=== PATIENT | male | born 1990 | race American Indian/Alaskan Native ===

== ENCOUNTER 2022-01-04 11:56 | Emergency (ER) | payer SELFPAY ==
[2022-01-04] MEDS ORDERED: ALBUTEROL 2.5 MG/3 ML NEBU IH ONE (12:19)
[2022-01-04] MEDS ORDERED: FUROSEMIDE 40 MG/4 ML INJ IV ONE (12:19)
[2022-01-04] MEDS ORDERED: IPRATROPIUM 0.02% NEBU 2.5 ML IH ONE (12:19)
--- NOTE | 2022-01-04 12:50 | XRay Report ---
CHEST 1 VIEW 01/04/2022 11:41 AM INDICATION / CLINICAL INFORMATION: Dyspnea. COMPARISON: None available. FINDINGS: SUPPORT DEVICES: None. HEART / MEDIASTINUM: Borderline to mild cardiomegaly is suspected LUNGS / PLEURA: There is poor inspiration. Bibasilar airspace opacities and small left pleural effusi on are suspected. No pneumothorax. ADDITIONAL FINDINGS: No significant additional findings. IMPRESSION: 1. Borderline heart size. 2. Bibasilar airspace opacities and small left pleural effusion. Correlate for pneumonia or mild CHF. Signer Name: Armando Sparks Jr, MD Signed: 01/04/2022 12:45 PM Workstation Name: [id number]
[2022-01-04 13:01] LABS: ABG Base Excess -2.2 mmol/L (-2.0-3.0); ABG HCO3 21.6 mmol/L (20.0-26.0); ABG Methemoglobin 0.6 % (0.0-1.5); ABG Oxygen Saturation 99.4 % (95.0-99.0); ABG PCO2 34.8 mm Hg; ABG PH 7.411 pH Units (7.350-7.450)
[2022-01-04 13:08] LABS: ABG PO2 261.4 mm Hg (80.0-90.0)
[2022-01-04 13:44] LABS: Basophils # (Auto) 0.1 K/mm3 (0.0-0.1); Basophils % (Auto) 0.7 % (0.0-1.8); Eosinophils % (Auto) 0.1 % (0.0-4.3); Hematocrit 48.9 % (35.5-45.6); Hemoglobin 15.9 gm/dl (11.8-15.2); Lymphocytes # (Auto) 2.5 K/mm3 (1.2-5.4); Lymphocytes % (Auto) 20.8 % (13.4-35.0); Mean Corpuscular HGB Conc 33 % (32-34); Mean Corpuscular Volume 96 fl (84-94); Monocytes % (Auto) 8.4 % (0.0-7.3); Platelet Count 317 K/mm3 (140-440); Red Cell Distribution Width 14.2 % (13.2-15.2)
[2022-01-04 13:50] LABS: Creatine Kinase MB 1.7 ng/mL (0.0-4.0)
[2022-01-04 13:52] LABS: Alanine Aminotransferase 9 units/L (7-56); Albumin 1.8 g/dL (3.9-5); BUN/Creatinine Ratio 8; Blood Urea Nitrogen 7 mg/dL (9-20); Calcium 8.1 mg/dL (8.4-10.2); Hemolysis Index 61
[2022-01-04 13:57] LABS: INR 0.9 (0.87-1.13)
[2022-01-04] MEDS ORDERED: NITROGLYCERIN DRIP 50 MG/250 ML BOTTLE IV SCH (14:00)
[2022-01-04 14:06] LABS: Hyaline Casts,Urine 9 /LPF; Mucus,Urine FEW /HPF
[2022-01-04 14:18] LABS: Amphetamine Screen,Urine PRESUMPTIVE NEGATIVE; Benzodiazepines Screen,Urine PRESUMPTIVE NEGATIVE; Cannabinoid Screen,Urine PRESUMPTIVE POSITIVE; Cocaine Screen,Urine PRESUMPTIVE POSITIVE; Methadone Screen,Urine PRESUMPTIVE NEGATIVE; Opiate Screen,Urine PRESUMPTIVE NEGATIVE
[2022-01-04 14:29] LABS: Color,Urine Yellow (Yellow)
--- NOTE | 2022-01-04 16:22 | Cat Scan Report ---
. CTA CHEST WITH CONTRAST INDICATION / CLINICAL INFORMATION: SOB 100ml of [id number]. TECHNIQUE: Axial CT images were obtained through the chest after injection of 100 cc Omni 350 IV cont rast. 3 plane MIP and/or 3D reconstructions were produced. All CT scans at this location are performe d using CT dose reduction for ALARA by means of automated exposure control. COMPARISON: None available. FINDINGS: PULMONARY EMBOLUS: None. THORACIC AORTA: No significant abnormality. HEART: No significant abnormality. CORONARY ARTERY CALCIFICATION: Absent -- None. MEDIASTINUM / JEF: No significant abnormality. PLEURA: Small bilateral effusions. No pneumothorax. LUNGS: Dense airspace consolidation left lower lobe. Compressive atelectasis both lower lobes. Modera te pulmonary emphysema ADDITIONAL FINDINGS: None. UPPER ABDOMEN: Small amount of upper abdominal fluid/ascites SKELETAL STRUCTURES: No significant osseous abnormality. IMPRESSION: 1. No CT evidence for pulmonary embolism. 2. Left lower lobe pneumonia. 3. Bilateral pleural effusions with small amount of upper abdominal ascites Signer Name: Nestor Lima MD Signed: 01/04/2022 4:18 PM Workstation Name: [id number]
[2022-01-04] MEDS ORDERED: cefTRIAXone/NS 1 GM/50 ML 1 GM/50 ML BAG IV ONE (16:25)
--- NOTE | 2022-01-04 20:20 | Emergency Department Report ---
ED General Adult HPI - General Chief complaint: Dyspnea/Respdistress Stated complaint: URBANO PUI?: No Time Seen by Provider: 01/04/22 12:17 Source: EMS Mode of arrival: Stretcher Limitations: Physical Limitation - History of Present Illness Initial comments: URBANO SINCE 01/03/2022, WAS 88% ON RA, CLUBBING TO FINGERS, NO MED HX pt dnies anyd rug history hasn;t seen a doctor for a long time -: Gradual, days(s) Location: chest Radiation: non-radiation Severity scale (0 -10): 0 Consistency: constant Improves with: none Worsens with: none Associated Symptoms: denies: denies other symptoms, confusion, chest pain - Related Data Previous Rx's Medication Instructions Recorded Last Taken Type Albuterol Mdi (or & Nicu Only) 2 puff IH QID PRN #8.5 gram 01/04/22 Unknown Rx [ProAir HFA Inhaler] Furosemide [Lasix] 20 mg PO QDAY #30 tablet 01/04/22 Unknown Rx Lisinopril/Hydrochlorothiazide 1 each PO DAILY #30 01/04/22 Unknown Rx [Zestoretic 10-12.5 mg Tablet] levoFLOXacin [Levaquin TAB] 500 mg PO QDAY #10 tablet 01/04/22 Unknown Rx Allergies Allergy/AdvReac Type Severity Reaction Status Date / Time No Known Allergies Allergy Verified 01/04/22 12:15 ED Review of Systems ROS: Stated complaint: URBANO Other details as noted in HPI Constitutional: denies: chills, fever Eyes: denies: eye pain, eye discharge, vision change ENT: denies: ear pain, throat pain Respiratory: denies: cough, shortness of breath, wheezing Cardiovascular: denies: chest pain, palpitations Endocrine: no symptoms reported Gastrointestinal: denies: abdominal pain, nausea, diarrhea Genitourinary: denies: urgency, dysuria Musculoskeletal: denies: back pain, joint swelling, arthralgia Skin: denies: rash, lesions Neurological: denies: headache, weakness, paresthesias Psychiatric: denies: anxiety, depression Hematological/Lymphatic: denies: easy bleeding, easy bruising ED Past Medical Hx - Past Medical History Previous Medical History?: No Hx Hypertension: No - Surgical History Past Surgical History?: No - Medications Home Medications: Home Medications Medication Instructions Recorded Confirmed Last Taken Type Albuterol Mdi (or & Nicu Only) 2 puff IH QID PRN #8.5 gram 01/04/22 Unknown Rx [ProAir HFA Inhaler] Furosemide [Lasix] 20 mg PO QDAY #30 tablet 01/04/22 Unknown Rx Lisinopril/Hydrochlorothiazide 1 each PO DAILY #30 01/04/22 Unknown Rx [Zestoretic 10-12.5 mg Tablet] levoFLOXacin [Levaquin TAB] 500 mg PO QDAY #10 tablet 01/04/22 Unknown Rx ED Physical Exam - General Limitations: Physical Limitation General appearance: alert, other (tachypneic ) - Head Head exam: Present: atraumatic, normocephalic - Eye Eye exam: Present: normal appearance - ENT ENT exam: Present: mucous membranes moist - Neck Neck exam: Present: normal inspection - Respiratory Respiratory exam: Present: wheezes, rales. Absent: respiratory distress - Cardiovascular Cardiovascular Exam: Present: normal rhythm, tachycardia. Absent: systolic murmur, diastolic murmur, rubs, gallop - GI/Abdominal GI/Abdominal exam: Present: soft, normal bowel sounds - Rectal Rectal exam: Present: deferred - Extremities Exam Extremities exam: Present: normal inspection - Back Exam Back exam: Present: normal inspection - Neurological Exam Neurological exam: Present: alert, oriented X3 - Psychiatric Psychiatric exam: Present: normal affect, normal mood - Skin Skin exam: Present: warm, dry, intact, normal color. Absent: rash ED Course Vital Signs 01/04/22 01/04/22 01/04/22 12:11 12:14 12:35 Temperature 98.4 F Pulse Rate 101 H Pulse Rate [ 98 H Anterior Bilateral Throughout] Respiratory 26 H Rate Respiratory 18 Rate [Anterior Bilateral Throughout] Blood Pressure Blood Pressure 180/100 [Left] O2 Sat by Pulse 98 97 Oximetry 01/04/22 01/04/22 01/04/22 13:55 13:56 13:58 Temperature Pulse Rate 89 87 91 H Pulse Rate [ Anterior Bilateral Throughout] Respiratory Rate Respiratory Rate [Anterior Bilateral Throughout] Blood Pressure 170/118 170/118 170/118 Blood Pressure [Left] O2 Sat by Pulse 98 98 97 Oximetry 01/04/22 01/04/22 01/04/22 14:00 14:02 14:04 Temperature Pulse Rate 88 87 97 H Pulse Rate [ Anterior Bilateral Throughout] Respiratory 16 Rate Respiratory Rate [Anterior Bilateral Throughout] Blood Pressure 170/118 170/118 170/118 Blood Pressure 213/103 [Left] O2 Sat by Pulse 97 97 98 Oximetry 01/04/22 01/04/22 01/04/22 14:06 14:07 14:10 Temperature Pulse Rate 91 H 103 H 87 Pulse Rate [ Anterior Bilateral Throughout] Respiratory 16 Rate Respiratory Rate [Anterior Bilateral Throughout] Blood Pressure 159/112 159/112 Blood Pressure 227/103 [Left] O2 Sat by Pulse 97 98 98 Oximetry 01/04/22 01/04/22 01/04/22 14:16 14:31 14:45 Temperature Pulse Rate 89 98 H 89 Pulse Rate [ Anterior Bilateral Throughout] Respiratory Rate Respiratory Rate [Anterior Bilateral Throughout] Blood Pressure 170/118 165/113 169/117 Blood Pressure [Left] O2 Sat by Pulse 97 97 96 Oximetry 01/04/22 01/04/22 01/04/22 15:01 15:15 15:31 Temperature Pulse Rate 100 H 86 92 H Pulse Rate [ Anterior Bilateral Throughout] Respiratory Rate Respiratory Rate [Anterior Bilateral Throughout] Blood Pressure 166/115 176/122 176/122 Blood Pressure [Left] O2 Sat by Pulse 97 97 95 Oximetry 01/04/22 01/04/22 01/04/22 15:46 16:05 16:15 Temperature Pulse Rate 101 H 92 H 93 H Pulse Rate [ Anterior Bilateral Throughout] Respiratory 22 39 H Rate Respiratory Rate [Anterior Bilateral Throughout] Blood Pressure 176/122 157/111 187/120 Blood Pressure [Left] O2 Sat by Pulse 97 95 Oximetry 01/04/22 01/04/22 01/04/22 16:31 16:45 17:01 Temperature Pulse Rate 97 H 96 H 96 H Pulse Rate [ Anterior Bilateral Throughout] Respiratory 56 H 40 H 40 H Rate Respiratory Rate [Anterior Bilateral Throughout] Blood Pressure 178/118 187/120 169/115 Blood Pressure [Left] O2 Sat by Pulse 93 94 94 Oximetry 01/04/22 01/04/22 01/04/22 17:15 17:31 17:45 Temperature Pulse Rate 91 H 94 H 91 H Pulse Rate [ Anterior Bilateral Throughout] Respiratory 39 H 30 H 46 H Rate Respiratory Rate [Anterior Bilateral Throughout] Blood Pressure 175/113 171/115 174/117 Blood Pressure [Left] O2 Sat by Pulse 94 96 95 Oximetry 09/06/2601/04/22 01/04/22 18:01 18:15 18:31 Temperature Pulse Rate 96 H 95 H 101 H Pulse Rate [ Anterior Bilateral Throughout] Respiratory 33 H 30 H 29 H Rate Respiratory Rate [Anterior Bilateral Throughout] Blood Pressure 169/110 172/107 200/116 Blood Pressure [Left] O2 Sat by Pulse 96 96 95 Oximetry 01/04/22 18:45 Temperature Pulse Rate 97 H Pulse Rate [ Anterior Bilateral Throughout] Respiratory 34 H Rate Respiratory Rate [Anterior Bilateral Throughout] Blood Pressure 167/117 Blood Pressure [Left] O2 Sat by Pulse 96 Oximetry ED Medical Decision Making - Lab Data Result diagrams: 01/04/22 13:22 01/04/22 13:22 - EKG Data -: EKG Interpreted by Sd EKG shows normal: sinus rhythm Rate: normal - EKG Data Interpretation: no acute changes - Radiology Data Radiology results: report reviewed, image reviewed - Medical Decision Making work up showed : - Pneumonia lactic acid normal rt given steriods and abx given vss no distress - elevated BP ; started on nitro BP is going down - d dimer elevted : CTA showed penumonia, pt is stable imrpoved dramatically o2 sat 99 on RA , wanted to go home and se card OP , will start onn BP meds and abx and inhaler Critical care attestation.: If time is entered above; I have spent that time in minutes in the direct care of this critically ill patient, excluding procedure time. ED Disposition Clinical Impression: SOB (shortness of breath), Hypertensive urgency, Cocaine use, Pneumonia Disposition: 01 HOME / SELF CARE / HOMELESS Is pt being admited?: No Does the pt Need Aspirin: No Condition: Stable Instructions: Shortness of Breath, Adult, [id number], Hypertension, Adult, Community-Acquired Pneumonia, Adult, [id number], Bacterial Pneumonia (ED) Prescriptions: Furosemide [Lasix] 20 mg PO QDAY #30 tablet levoFLOXacin [Levaquin TAB] 500 mg PO QDAY #10 tablet Albuterol Mdi (or & Nicu Only) [ProAir HFA Inhaler] 2 puff IH QID PRN #8.5 gram PRN Reason: Shortness Of Breath Lisinopril/Hydrochlorothiazide [Zestoretic 10-12.5 mg Tablet] 1 each PO DAILY #30
[2022-01-04 21:36] VITALS: BP 180/121
--- NOTE | 2022-01-07 16:44 | Electrocardiograph Report ---
[facility] Test Date: 2022-01-04 Test Time: 20:35:27 Pat Name: KIYA WINN Department: Room: Gender: M [employer]: CTA : 1990 Requested By: AMELIA ARGUETA Order Number: [id number] Reading MD: Quyen Forrester Measurements Intervals [place] Rate: 93 P: 21 W[place]: 168 QRS: 20 QRSD: 89 T: 16 QT: 397 QTc: 495 Interpretive Statements Sinus rhythm Prolonged QT interval No previous ECG available for comparison Electronically Signed On 01-07-2022 16:44:24 EDT by Quyen Forrester
== END 2022-01-04 21:37 | disposition home or self-care (01) ==
LOC: ED 11:56
DX: R06.02 Shortness of breath (principal); I16.0 Hypertensive urgency; J18.9 Pneumonia, unspecified organism; F14.90 Cocaine use, unspecified, uncomplicated; Z79.899 Other long term (current) drug therapy
CPT/HCPCS: 36415; 71045; 71275; 80053; 80307; 81001; 82010; 82140; 82550; 82553; 82803; 83690; 83735; 83880; 84484; 85025; 85379; 85610; 87086; 93005; 94640; 96365; 96366; 96367; 96375; 99285; J0696; J1940; J3490; Q9967; 94644; 99284